=== PATIENT | female | born 1945 | race Caucasian/White ===

== ENCOUNTER 2022-02-14 08:06 | Day surgery (SDC) | payer MEDICARE, BC ==
[~2022-02-14] VITALS: Ht 165.1 cm; Wt 100.3 kg
[~2022-02-14 08:06] MED LIST: ALEN70 PO; AMLO5 PO; ASPI81CH PO; ATOR10 PO; BENA20 PO; CALCIUM 250-D1 EAC1 PO; IBUP800 PO; ISOMON20; Isosorbide Mono30 MG PO; LATA.005SO BOTHEYES; NIFE60ER PO; NITR.4SL SL; RANO500T PO
== END 2022-02-14 09:51 | disposition home or self-care (01) ==
LOC: ORSCSDS 08:06
PROVIDERS: Ophthalmology
PROC: 08RK3JZ Replacement of Left Lens with Synthetic Substitute, Percutaneous Approach (ICD-10-PCS; principal; 2022-02-14 09:30)
DX: H25.13 Age-related nuclear cataract, bilateral (principal); I10 Essential (primary) hypertension; I25.10 Atherosclerotic heart disease of native coronary artery without angina pectoris; E66.9 Obesity, unspecified; Z68.38 Body mass index [BMI] 38.0-38.9, adult; Z79.899 Other long term (current) drug therapy
CPT/HCPCS: J2001; J2250; J2405; J3010; J3301; J7040; V2632

== ENCOUNTER 2022-03-07 07:55 | Day surgery (SDC) | payer MEDICARE, BC ==
[~2022-03-07] VITALS: Ht 165.1 cm; Wt 101.5 kg
== END 2022-03-07 09:50 | disposition home or self-care (01) ==
LOC: ORSCSDS 07:55
PROVIDERS: Ophthalmology
PROC: 08RJ3JZ Replacement of Right Lens with Synthetic Substitute, Percutaneous Approach (ICD-10-PCS; principal; 2022-03-07 09:30)
DX: H25.11 Age-related nuclear cataract, right eye (principal); E78.5 Hyperlipidemia, unspecified; I10 Essential (primary) hypertension; I25.10 Atherosclerotic heart disease of native coronary artery without angina pectoris; E11.9 Type 2 diabetes mellitus without complications; Z68.37 Body mass index [BMI] 37.0-37.9, adult; E66.9 Obesity, unspecified; Z79.82 Long term (current) use of aspirin; Z79.899 Other long term (current) drug therapy
CPT/HCPCS: J2001; J2250; J3010; J3301; J7040; V2632

== ENCOUNTER → 2024-07-20 | Outpatient (CLI) | payer MEDICARE, BC ==
[~2024-07-20] MED LIST changes: +OXAYDO5 M1 PO
[2024-07-20 10:51] LABS: Percent Saturation 24.5 % (15.0-50.0)
[2024-07-20 10:54] LABS: BASOPHILS ABSOLUTE AUTO 0.04 K/mm3 (0.00-0.23); BASOPHILS PERCENT AUTO 1 % (0-2); EOSINOPHILS ABSOLUTE AUTO 0.14 K/mm3 (0.00-0.68); EOSINOPHILS PERCENT AUTO 2 % (0-6); Hematocrit 32.5 % (33.0-51.0); Hemoglobin 10.6 g/dL (11.5-16.0); IMMATURE GRAN ABSOLUTE AUTO 0.03 K/mm3 (0.00-0.10); IMMATURE GRAN PERCENT AUTO 0 % (0-1); LYMPHOCYTES ABSOLUTE AUTO 1.43 K/mm3 (0.84-5.20); LYMPHOCYTES PERCENT AUTO 21 % (21-46); MONOCYTES ABSOLUTE AUTO 0.44 K/mm3 (0.16-1.47); MONOCYTES PERCENT AUTO 7 % (4-13); Mean Corpuscular HGB 31.7 pg (26.0-34.0); Mean Corpuscular HGB Conc 32.6 g/dL (31.5-36.5); Mean Corpuscular Volume 97 fL (80-100); Mean Platelet Volume 9.7 fL (9.1-12.4); NEUTROPHILS ABSOLUTE AUTO 4.59 K/mm3 (1.96-9.15); NEUTROPHILS PERCENT AUTO 69 % (41-73); Platelet Count 292 K/mm3 (150-400); RDW Coefficient Variation 13.4 % (11.7-14.2); RDW Standard Deviation 47.4 fL (35.1-46.3); Red Blood Cell Count 3.34 M/mm3 (3.80-5.20); White Blood Cell Count 6.67 K/mm3 (4.00-11.30)
== END | disposition home or self-care (01) ==
LOC: LAB 07:30 → LAB SHORT 07:30
PROVIDERS: Nurse Practitioner Family
DX: D64.9 Anemia, unspecified (principal)
CPT/HCPCS: 82306; 82607; 82728; 82746; 83540; 83550; 85025

== ENCOUNTER 2025-05-16 09:48 | Day surgery (SDC) | payer MEDICARE, BC ==
[~2025-05-16] VITALS: Ht 165.1 cm; Wt 77.5 kg
[2025-05-16] MEDS ORDERED: NS 500 ML IV ONE ×2 (09:57→10:52)
[2025-05-16] MEDS ORDERED: CeFAZolin Sodium 2,000 MG VIAL ONE (09:57)
[2025-05-16] MEDS ORDERED: NS 100 ML IV ONE (10:38)
--- NOTE | 2025-05-16 10:52 | NUR ---
05/16/25 Marilynn2 Hamzah Emerson CALL LIGHT WITHIN REACH.
[2025-05-16] MEDS ORDERED: Lidocaine 1%-Epineph 1:100000 20 ML MDV ONE (12:06)
[2025-05-16 14:47] VITALS: BP 155/74
== END 2025-05-16 13:13 | disposition home or self-care (01) ==
LOC: ORSCSDS 09:48
PROVIDERS: Orthopaedic Surgery
PROC: 01N50ZZ Release Median Nerve, Open Approach (ICD-10-PCS; principal; 2025-05-16 12:15)
DX: G56.01 Carpal tunnel syndrome, right upper limb (principal); M72.0 Palmar fascial fibromatosis [Dupuytren]; Z79.82 Long term (current) use of aspirin; Z79.899 Other long term (current) drug therapy
CPT/HCPCS: J0690; J7040